=== PATIENT | male | born 1955 | race Caucasian/White ===

== ENCOUNTER 2021-10-09 13:04 | Observation (INO) | payer OTHER ==
[~2021-10-09] VITALS: Ht 177.8 cm; Wt 100.3 kg
[2021-10-09] MEDS ORDERED: HYDROCHLOROTHIA25 MG PO (14:03)
[2021-10-09] MEDS ORDERED: LOSARTAN POTAS100 MG PO (14:03)
--- NOTE | 2021-10-09 19:21 | NUR ---
New admit to the medical floor. Patient alert and oriented x4, no acute distress noted. Patient has two correctional officers at bedside. IV fluids started per provider order. Patient oriented to room and call light. No needs at this time.
--- NOTE | 2021-10-09 19:48 | NUR ---
BEDSIDE REPORT PT ADMITTED FROM E.D. JUST BEFORE SHIFT CHANGE. HE HAS BEEN RESTING, PLAN TO GO TO SURGERY TOMORROW.
--- NOTE | 2021-10-09 22:03 | NUR ---
PT REPORTS PAIN 7/10, DILAUDID 1MG IV ADMINISTERED. PT REPORTS HE FILLS LIKE HIS PASCUAL CATH MIGHT NOT BE DRAINING, HE FILLS LIKE HIS HE NEEDS TO PEE, EDUCATION THAT THIS IS REPORTED OFTEN AFTER PASCUAL PLACED DUE TO IRRITAION TO TISSUE WHEN PLACED, BLADDER SCANNED PERFORMED TO ASSURE PT AND GUARDS, PT HAD 73ML NOTED ON BLADDER SCANNED, URINE IS NOTED TO BE ACTIVELY DRAINING. PT PASCUAL TUBE WAS ROUTED UP AND OUT OF UNDERWARE, RE-ROUTED THROUGH LEG OF UNDERWARE TO PROMOTE BETTER DRAINING. ASSESSMENT, V/S AND I/O COMPLETE.
--- NOTE | 2021-10-09 23:52 | NUR ---
ROUNDING ON PT, HE REPORTS HIS PAIN 8/, HE SAID "I WAS SLEEPING AND WOKE IN THIS PAIN JUST NOW" DILAUDID 1MG IV ADMINISTERED AT THIS TIME. NO OTHER REQUESTS, ALL DRINKS AND CUPS REMOVED FROM BESIDE HE IS TO BE NPO NOW.
--- NOTE | 2021-10-10 01:50 | NUR ---
CALLED TO REPORT THAT PT INGUINAL HERNIA IS NO LONGER REDUCED, PT'S PAIN HAS INCREASED SIGNIFICANTLY. GAVE ORDER FOR ATIVAN AND INCREASED FREQUENCY OF DILAUDID ORDER.
--- NOTE | 2021-10-10 02:25 | NUR ---
PT RESTING IN BED, EYES CLOSED RR EVEN. NO DISTRESS NOTED AT THIS TIME.
--- NOTE | 2021-10-10 04:18 | NUR ---
PT ALERT TO STAFF AT BEDSIDE, V/S COMPLETE. ASSESSMENT COMPLETE. PT DID NOT VERBALIZE PAIN AT THIS TIME. GUARDS IN ROOM X2.
--- NOTE | 2021-10-10 04:19 | NUR ---
PT PRODUCING QUANTITY SUFFICIENT URINE IN PASCUAL.
--- NOTE | 2021-10-10 05:47 | CONS ---
[facility] [address], [place] [address] Signed DATE OF CONSULTATION: 10/09/2021 CHIEF COMPLAINT: Incarcerated right inguinal hernia. HISTORY OF PRESENT ILLNESS: Fish is a 66-year-old gentleman from our [facility] [place]. In the remote past, he had a penile implant placed while living in [place]. He is now at our [facility] [place]. He has had difficulty with a right inguinal hernia. He generally can reduce it. He has been to see Dr. Cates over 4 months ago. There were plans to repair that electively. Unfortunately, the last few days he has had increasing trouble with his hernia. He said he has not been able to reduce it. It was causing increased pain. He got to the point he could not urinate. He was brought to the emergency room with respect to the above. He was started on some IV fluids, Dilaudid and a Bates catheter was inserted. Our ER physician is extremely busy and asked me to come and consult on the patient. In the meantime, we were able to give him 4 mg of Versed on top of the Dilaudid and then we were able to reduce the hernia. He said he feels much better. He said he knows as soon as he stands up it is going to pop back out. We decided we would bring him in overnight and repair this tomorrow as an add on case. PAST MEDICAL HISTORY: Hepatitis C virus, cirrhosis of his liver in 2010, degenerative disk disease in his back, hypertension, bipolar disorder, and he is edentulous. PAST SURGICAL HISTORY: Includes the penile implant and a laparotomy. SOCIAL HISTORY: He does not smoke or drink at this point. He used to abuse methamphetamines. He is at the [facility] [place]. 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 FAMILY HISTORY: None. REVIEW OF SYSTEMS: He had 10 systems reviewed and really nothing new to add, although he is a good historian. ALLERGIES: None. Electronically Signed By: PREET TRAMMELL MD 10/10/21 0547 PATIENT NAME: FISH OROZCO CONSULTATION DATE OF : 59 REPORT #: [id number] PHYSICIAN: PREET TRAMMELL MD PCP: NO PRIMARY CARE PHYSICIAN REPORT IS CONFIDENTIAL AND NOT TO BE RELEASED WITHOUT AUTHORIZATION [facility] [address], [place] [address] Signed MEDICATIONS: 1. Hydrochlorothiazide 12.5 mg p.o. q.a.m. 2. Losartan 100 mg p.o. daily. PHYSICAL EXAMINATION: VITAL SIGNS: His blood pressure is 134/84, his heart rate is 80, respiratory rate 20, temperature is 99.0, he is 96% on room air. He is 5 feet 10 inches and 99 kg. GENERAL: Fish is a 66-year-old gentleman, lying supine in his hospital ER bed. He is alert, awake, and interactive. He is uncomfortable from the right groin pain. He is not systemically ill or toxic. LUNGS: Clear to auscultation bilaterally. HEART: Regular rate and rhythm without murmurs. ABDOMEN: Mildly protuberant. : He has a moderate sized incarcerated right inguinal hernia. I can feel the implant with the pump in his left hemiscrotum. With the addition of the Versed, then we were able to reduce the hernia back on the right side. Both testicles were descended and unremarkable. LABORATORY DATA: His white blood count is 4.7, hemoglobin 15, neutrophils 60, platelet count 130. BUN 21, creatinine 1.30, glucose 107. Urinalysis negative. Total bilirubin 0.8, AST 30, ALT 60, alkaline phosphatase 91, albumin is 4.4, lipase 170. RADIOGRAPHIC STUDIES: None. ASSESSMENT AND PLAN: Fish is a 66-year-old gentleman, who presents with an incarcerated and now reduced right inguinal hernia. He also has a penile implant. He has had quite a bit of difficulty with this and is still awaiting elective surgery. We decided we would bring him in overnight and repair it tomorrow. In the meantime, he will be allowed IV fluids and some clear liquids. He has expressed understanding, agrees with above plan. Preet Trammell MD ALB/MODL /[id number] Electronically Signed By: PREET TRAMMELL MD 10/10/21 0547 PATIENT NAME: FISH OROZCO CONSULTATION DATE OF : 59 REPORT #: [id number] PHYSICIAN: PREET TRAMMELL MD PCP: NO PRIMARY CARE PHYSICIAN REPORT IS CONFIDENTIAL AND NOT TO BE RELEASED WITHOUT AUTHORIZATION [address] [address] Signed cc: [facility] Preet Trammell MD Copies: PREET TRAMMELL MD ~ Electronically Signed By: PREET TRAMMELL MD 10/10/21 0547 PATIENT NAME: FISH OROZCO CONSULTATION DATE OF : 59 REPORT #: [id number] PHYSICIAN: PREET TRAMMELL MD PCP: NO PRIMARY CARE PHYSICIAN REPORT IS CONFIDENTIAL AND NOT TO BE RELEASED WITHOUT AUTHORIZATION
--- NOTE | 2021-10-10 05:53 | NUR ---
PT WAS PAINFUL AT START OF SHIFT, HIS PAIN INCREASED TO SEVERE BY MIDNIGHT, AND HIS HERNIA IS NOTED TO BE PROTRUDING. CALLED TO UPDATE ON THIS. NEW ORDERS FOR ATIVAN AND INCREASE FREQUENCY OF DILAUDID. PT ADMINISTERED 2MG ATIVAN IV AND HAS BEEN ABLE TO SLEEP THIS AM. V/S STABLE, GUARDS IN ROOM X2. QUANTITY SUFFICIENT URINE OUT IN PASCUAL CATH. PT HAS BEEN NPO SINCE MIDNIGHT, PLAN FOR SURGERY TODAY.
--- NOTE | 2021-10-10 07:30 | NUR ---
Shift report recieved from VICENTE Bray, pt currently in surgery.
--- NOTE | 2021-10-10 08:35 | NUR ---
10/10/21 0835 Lupe Syed 0823-PT TO PACU IN SUPINE POSITION. EYES CLOSED DOES NOT RESPOND TO VERBAL OR TACTILE COMMANDS. BREATHIGN EASY AND UNLABORED WITH ORAL AIRWAY IN PLACE. SPO2 >95% ON 6 L O2 VIA SIMPLE MASK. ICE APPLIED TO SURGICAL SITE. DRESSING CDI. 0827- PT CONTINUES TO SLEEP WITH ORAL IRWAY IN PLACE. BREATHING EASY AND ULABORED. SPO2 >95% ON 6 L O2 VIA SIMPLE MEGHNA. VSS. 0835- PT CONTINUES TO SLEEP IN SUPINE POSITION WITH ORAL AIRWAY IN PLACE. BREATHING EASY AND UNLABORED. SPO2 >95% ON 6 L O2 VIA SIMPLE MASK. PT DOES NOT RESPOND TO VERBAL OR TACTILE STIMULI.
--- NOTE | 2021-10-10 09:45 | NUR ---
Pt back from surgery, VSS on RA, scheduled meds given per provider order. Pt in wrist and ankle shackels and 2 correctional officers preent in room per [facility] policy. Pt denies any pain or needs at this time
--- NOTE | 2021-10-10 10:38 | OR ---
[facility] [address], [place] [address] Signed DATE OF OPERATION: 10/10/2021 SURGEON: Preet Ayon MD PREOPERATIVE DIAGNOSES: 1. Moderate sized incarcerated right inguinal hernia. 2. Penile implant. POSTOPERATIVE DIAGNOSES: 1. Moderate sized incarcerated indirect right inguinal hernia. 2. Penile implant. 3. Onset passing through direct space/inguinal floor in right groin. 4. Pubic tubercle. PROCEDURE: Exploration, right groin. ESTIMATED BLOOD LOSS: None. CONSULTATION: Dr. Gavi Vitale via phone. INDICATIONS: Prachi is a 66-year-old gentleman, who happens to be from our [facility] [place]. 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 He also had a penile implant implanted. Unfortunately, it sounds like he got himself involved with methamphetamines and ended up in group home. Overall, he is a very bright and intelligent gentleman. He has had trouble with right inguinal hernia that has been enlarging. He says normally he can push it back inside. He had actually seen a surgeon here in [facility], and was hoping to get that repaired. The details of which are not informed entirely. Unfortunately, over the last three to four days he was having a lot of trouble with the hernia being stuck in the right groin and he was having difficulty pushing it back inside. He was finally brought to our local emergency room for evaluation last evening. With the help of Dilaudid and fentanyl, Prachi and myself were able to reduce that hernia. He was quite concerned that going back to the group home would only continue his current course. We therefore admitted him overnight for observation at the hospital. We provided him with some Ativan to keep his muscle relaxed along with some Dilaudid. He did well overnight. This morning, he said he felt the hernia had come back out and he was quite concerned. He said it has been very Electronically Signed By: PREET AYON MD 10/10/21 1038 PATIENT NAME: PRACHI OROZCO OPERATIVE REPORT DATE OF : 59 REPORT #: [id number] PHYSICIAN: PREET AYON MD PCP: NO PRIMARY CARE PHYSICIAN REPORT IS CONFIDENTIAL AND NOT TO BE RELEASED WITHOUT AUTHORIZATION [facility] [address], [place] [address] Signed painful. On exam, I could certainly see that he had penile implants in the shaft of the penis. He also has a pump in his left hemiscrotum. However during all this, I never did feel any tube passing through the right groin. Neither do we take simple x-ray of his pelvis. We decided to bring him into the operating room this morning and we would repair that hernia for him. We reviewed inguinal hernia surgery along with its risks including, but not limited to bleeding, infection, scarring, change in contour of the skin, damage to the nerves, ischemic orchitis, recurrent hernias and chronic pain. He had expressed understanding and wished to proceed. PROCEDURE NOTE: I had met with Prachi again this morning in his room and again in our preop area. We both agreed on the right groin and marked that appropriately. After this, he was taken into the operating room and placed in a supine position under general endotracheal tube anesthesia. Once again, I examined the testicle and I could gently press and push his hernia back inside the groin once he was pharmacologically paralyzed. He did receive preoperative Ancef. SCDs were utilized. But even then, I did not feel this catheter behind his spermatic cord. We made a standard oblique incision over his groin and carried it down to the tissue bluntly and with the cautery. We opened the external oblique along its length and developed medially laterally. The ilioinguinal, and iliohypogastric nerves were visualized and protected throughout the case. He had some scar tissue down around the pubic tubercle particularly on the medial side. It took just a minute to separate that. rapidly realized that he had a tube coming over the pubic tubercle and diving straight through the direct space of the inguinal canal to a reservoir in his pelvis. On inspection, it looks like he has a moderate sized indirect inguinal hernia that is coming down along the spermatic cord to about the level of pubic tubercle. At that point, I had called our local urologist, who obviously has not spent a lot of time with penile implants since graduating. I did call the [facility], who did not have anyone available currently. It was recommended I check with the medical school. Since we did not violate the tissue planes around the catheter, we left that in place obviously and we simply injected some local anesthetic and washed out the wound. We closed the external oblique fascia back over the deep ring and the spermatic cord with a running 2-0 PDS suture. Patricia's fascia was reapproximated with a running 3-0 Monocryl suture. We reapproximated the dermis with interrupted 3-0 subcuticular Monocryl sutures. The skin edges were reapproximated with running 5-0 fast absorbing plain gut suture. Dry gauze and tape were then applied. Prachi was then awakened from his anesthesia, extubated in the OR, and taken to the recovery room in stable condition. I will be talking to Prachi shortly about his current situation. Electronically Signed By: PREET AYON MD 10/10/21 [facility] PATIENT NAME: PRACHI OROZCO OPERATIVE REPORT DATE OF : 59 REPORT #: [id number] PHYSICIAN: PREET AYON MD PCP: NO PRIMARY CARE PHYSICIAN REPORT IS CONFIDENTIAL AND NOT TO BE RELEASED WITHOUT AUTHORIZATION [address] [address] Signed Preet Ayon MD [facility]/MODL /[id number] cc: [facility] [place] Preet Ayon MD Copies: PREET AYON MD ~ Electronically Signed By: PREET AYON MD 10/10/21 1038 PATIENT NAME: PRACHI OROZCO OPERATIVE REPORT DATE OF : 59 REPORT #: [id number] PHYSICIAN: PREET AYON MD PCP: NO PRIMARY CARE PHYSICIAN REPORT IS CONFIDENTIAL AND NOT TO BE RELEASED WITHOUT AUTHORIZATION
--- NOTE | 2021-10-10 12:08 | NUR ---
in room to discuss w/ pt the surgical findings. Pt and correctional officers updated on plan of care and agreeable. Pt c/o 9/10 pain in groin, PRN pain meds given per request/provider order.
--- NOTE | 2021-10-10 13:13 | NUR ---
PT COMPLAINING OF PAIN. FRESH ICE PACK BROUGHT FOR PT. PT COMPLAINS OF SEVERE HEADACHE. PT COMPLAINS OF NOT HAVING FOOD. VICENTE OLIVEIRA NOTIFIED OF PT'S COMPLAINTS. CALL LIGHT WITHIN REACH, NO FURTHER NEEDS AT THIS TIME.
--- NOTE | 2021-10-10 13:33 | EKG ---
[facility] [address] [facility] [place], [place] [address] Signed Normal sinus rhythm Left axis deviation Nonspecific ST abnormality Abnormal ECG No previous ECGs available Confirmed by WILLIS KELLY DO ([id number]) on 10/10/2021 1:33:20 PM Electronically Signed By: WILLIS KELLY DO 10/10/21 1333 PATIENT NAME: PRACHI OROZCO Electrocardiogram DATE OF : 59 PHYSICIAN: WILLIS KELLY DO REPORT #: [id number] REPORT IS CONFIDENTIAL AND NOT TO BE RELEASED WITHOUT AUTHORIZATION
--- NOTE | 2021-10-10 14:00 | NUR ---
called to say a urologist at [facility] had accepted pt but there was not bed space available so pt was placed on waiting list, pt and chief quality officer updated w/ plan of care, understandable and agreeable. Pt c/o continuing pain in groin area, PRN IV pain meds given per pt request/provider order.
--- NOTE | 2021-10-10 16:11 | NUR ---
MED REC COMPLETE
[2021-10-10] MEDS ORDERED: DILAUDID4 MG PO ×2 (16:12→16:16)
[2021-10-10] MEDS ORDERED: HYDROCODON-ACE1 EAC8 PO (16:14)
--- NOTE | 2021-10-10 17:15 | NUR ---
DISCHARGE INSTRUCTIONS GIVEN VERBALLY TO PT AND IN WRIITEN FORM TO OFFICERS TO GIVE TO FACILITY NURSES. PT TAKEN VIA W/C TO [facility]. ALL QUESTIONS AND CONCERNS ANSWERED.
--- NOTE | 2021-10-10 17:37 | NUR ---
REPORT CALLED TO NURSE AT [facility], ALL QUESTIONS AND CONCERNS ANSWERED
--- NOTE | 2021-10-10 18:25 | NUR ---
FAXED FACE SHEET, H&P, DISCHARGE SUMMARY TO DR GARZA COST AT FAX [phone] TRAMEMLL ORDER.
--- NOTE | 2021-10-11 08:24 | DS ---
[facility] [address], [place] [address] Signed ADMISSION DATE: 10/09/2021 DISCHARGE DATE: 10/10/2021 FINAL DIAGNOSES: 1. Penile implant with reservoir in right groin. 2. Moderate-sized indirect right inguinal hernia. PROCEDURE: Exploration of right groin. HISTORY OF PRESENT ILLNESS: Prachi is a 66-year-old gentleman who unfortunately had erectile dysfunction in his 20s. He had a penile implant placed while living in [place] years ago. He had the penile implant replaced and/or revised three years ago with Dr. Edy Nova at [facility]. His office phone #[phone]. He is now fortunately incarcerated at the [facility]. He has had trouble with a right inguinal hernia. It has been getting progressively larger and is now down to the top of the scrotum. Generally, he can push it back inside with good results. This last week it gave him quite a bit of trouble. He apparently saw one of the surgeons locally and was planning on having this repaired approximately four months ago. He felt that it was incarcerated and caused him quite a bit of pain so he was brought to our local emergency room for evaluation. I have been asked to see him as a general surgeon on-call. HOSPITAL COURSE: I had met with Prachi in our ER. He had been given some Dilaudid by the ER physician. We added Versed and I was able to reduce his hernia. I could feel the pump in his left hemiscrotum. I could see a scar at the base of the penis where it joins the mons pubis. I felt the testicle and the spermatic cord, but I did go high enough to feel the tubing underneath this spermatic cord has traveled into the right groin. The reservoir of course is in the space of Retzius. He felt quite convicted that he wanted to stay and have it repaired in the morning. He felt by morning as already coming back out. After a long discussion, we took him into the operating room. We used a standard oblique incision in the groin and we opened up the external oblique fascia and opened it along its length. He does have a moderate sized but reducible indirect inguinal hernia. We found the reservoir tubing behind the spermatic cord at the pubic tubercle and then right through the direct space down into the space of Retzius to the reservoir. Unfortunately, we were not able to repair his inguinal hernia with the reservoir in that location. We called our urologist here locally who felt that it would be best if he had this done by his previous urologist. We had closed up the wound and brought Prachi back to his hospital bed. I have been talking with him intermittently throughout the day. In the meantime, I had the opportunity to speak with Dr. 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 Of course, we are in the midst to COVID pandemic and elective surgeries apparently been canceled down in [place]. Also it takes quite a bit of coordination to have the company rep be present with the appropriate replacement kit and replacement parts as needed. In addition, it will have to be coordinated with a general surgeon who can repair inguinal hernia once the reservoir has been moved. Of course, Prachi told me the penile implant is extremely important to him and he would not consent to have it removed completely. In that regard, he really is best served by going back to his urologist Dr. Nova. As a result, then we are going to be sending him back over [facility]. Prachi will be discharged back over the [facility] and he will be under light duty. He is not to lift over 5 pounds. He can remove the dressing tomorrow and shower and bathe as usual. We have given the number of Dr. Nova's office at [phone] and I can be called and arrangements made for this to be done as an outpatient. Prachi understands it is quite serious and the last thing he want to do is the implant and/or have it get infected. Otherwise, he will follow up my office as needed. In the meantime, he will follow a regular diet. He has expressed understanding and agrees above plan. Preet Ayon MD ALB/MODL /[id number] cc: [facility]. Edy Ayon MD Copies: PREET AYON MD ~ Electronically Signed By: PREET AYON MD 10/11/21 0824 PATIENT NAME: PRACHI OROZCO DISCHARGE SUMMARY DATE OF : 59 REPORT #: [id number] PHYSICIAN: PREET AYON MD PCP: NO PRIMARY CARE PHYSICIAN REPORT IS CONFIDENTIAL AND NOT TO BE RELEASED WITHOUT AUTHORIZATION
== END 2021-10-10 17:15 | disposition home or self-care (01) ==
LOC: ED 13:04 → MS 13:06
PROVIDERS: ADMIT Colon & Rectal Surgery; ATTEND Colon & Rectal Surgery
PROC: 0YQ50ZZ Repair Right Inguinal Region, Open Approach (ICD-10-PCS; principal; 2021-10-10 07:09)
DX: K40.30 Unilateral inguinal hernia, with obstruction, without gangrene, not specified as recurrent (principal); L90.5 Scar conditions and fibrosis of skin; I10 Essential (primary) hypertension; F31.9 Bipolar disorder, unspecified; Z96.0 Presence of urogenital implants
CPT/HCPCS: 80048; 80053; 81001; 82140; 83690; 83735; 84100; 85025; 85610; 93005; 93010; C9803; J0330; J0690; J1170; J2001; J2060; J2250; J2704; J7030; J7121; U0003

== ENCOUNTER 2021-10-14 16:42 | Emergency (ER) | payer OTHER ==
[~2021-10-14] VITALS: Ht 177.8 cm; Wt 100.2 kg
[~2021-10-14 16:42] MED LIST: DILAUDID4 MG PO; HYDROCHLOROTHIA25 MG PO; HYDROCODON-ACE1 EAC8 PO; LOSARTAN POTAS100 MG PO
--- OUTSIDE RECORDS SUMMARY | 2021-10-14 16:50 | XMS ---
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 Asha has no Care Guidelines for this patient. [facility] MO[facility] NOTE: Visits indicate total known visits. ED/C VISIT TRACKING (12 MO.) 10/14/2021 16:[address] [facility] [place] TYPE: Emergency COMPLAINT: - LOWER EXTREMITY PAIN 10/09/2021 13:05 [facility] TYPE: Emergency COMPLAINT: - ABDOMINAL/PELVIC PAIN INPATIENT VISIT TRACKING (12 MO.) 10/09/2021 13:06 [facility] [place] TYPE: Observation COMPLAINT: - RIGHT INGUINAL HERNIA DIAGNOSES: - Unilateral inguinal hernia, with obstruction, without gangrene, not specified as recurrent - Bipolar disorder, unspecified - Scar conditions and fibrosis of skin - Presence of urogenital implants - Essential (primary) hypertension [email or web address]
[2021-10-14] MEDS ORDERED: AUGMENTIN 875-1 EACH PO (19:25)
[2021-10-14] MEDS ORDERED: ULTRAM50 MG PO (19:25)
== END 2021-10-14 20:00 | disposition home or self-care (01) ==
LOC: ED 16:42
DX: K91.89 Other postprocedural complications and disorders of digestive system (principal); K40.90 Unilateral inguinal hernia, without obstruction or gangrene, not specified as recurrent; I10 Essential (primary) hypertension; Z20.822 Contact with and (suspected) exposure to COVID-19; Z79.899 Other long term (current) drug therapy
CPT/HCPCS: 36415; 74177; 76870; 80048; 81001; 83605; 85025; 96375; 96376; 99284-25; C9803; J1170; J2405; Q9967; U0003